=== PATIENT | male | born 1970 | race Caucasian/White ===

== ENCOUNTER 2019-09-13 23:27 | Emergency (ER) | payer BC ==
[2019-09-13] MEDS ORDERED: Clindamycin HCl 150 MG Cap PO ONE (23:53)
--- NOTE | 2019-09-13 23:54 | EDM.PDOC ---
ED HPI GENERAL MEDICAL PROBLEM - General Chief Complaint: Upper Extremity Injury/Pain Stated Complaint: RIGHT KNUCKLE INJURY Time Seen by Provider: 09/13/19 23:33 - History of Present Illness INITIAL COMMENTS - FREE TEXT/NARRATIVE: 49-year-old male presents with right ring finger knuckle injury. The patient was working with a wrench which slipped off of the boat and he knocked his knuckle into another metal truck component. He had some soreness during the day and he is has more redness and swelling tonight. He denies any wrist or arm pain. No fevers chills, nausea vomiting diarrhea. No chills or shortness of breath. No recent chest pain. He is taken no medication for this illness. His pain is mild but he is concerned about injury. - Related Data Allergies Allergy/AdvReac Type Severity Reaction Status Date / Time No Known Allergies Allergy Verified 09/13/19 23:44 Home Meds: Home Meds . [No Known Home Meds] 09/13/19 [History] Clindamycin HCl 450 mg PO Q6HR 10 Days #120 capsule 09/13/19 [Rx] Lactobacillus Rhamnosus GG [Culturelle] 1 cap PO BID 10 Days #20 cap 09/13/19 [ Rx] Past Medical History - Past Health History Medical/Surgical History: Denies Medical/Surgical History Social & Family History - Tobacco Use Smoking Status *Q: Current Every Day Smoker Years of Tobacco use: 25 Packs/Tins Daily: 1 - Recreational Drug Use Recreational Drug Use: No Review of Systems - Review of Systems Review Of Systems: Comprehensive ROS is negative, except as noted in HPI. ED EXAM, GENERAL - Physical Exam Exam: See Below Free Text/Narrative:: General: No acute distress. Comfortable. Extremities: Right hand. There is a 1 cm shallow laceration over the right MCP joint. More proximal there is a 3 cm region of erythema and some warmth on the dorsal hand. There is no pain with flexion or extension of the fingers. There is no swelling of the fingers. There is no pain ranging the wrist in flexion or extension. There is no forearm tenderness to compression. The fourth metacarpal is not tender to palpation nor is the first phalanx. Course - Vital Signs Text/Narrative:: Very shallow less than 1 cm laceration right MCP joint. It is look mildly erythematous I suspect early infection. There is no suggestion of progression of infection up the extensor sheaths. This is localized at this time. I would like not to close this wound. First of all it is very minor and second about like what to drain if and when it gets more infected. We will treat with antibiotic. 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 Accordingly we will do clindamycin first. Patient was told that he is not clearly improved in 12 hours he needs to return immediately to the emergency department. As long as he continues to improve consistently follow-up is not completely necessary although I did encourage him to get a wound check in 2 or 3 days if he has any doubts whatsoever that that this is rapidly improving. Last Recorded V/S: Last Vital Signs Temp 97.0 F 09/13/19 23:41 Pulse 89 09/13/19 23:41 Resp 16 09/13/19 23:41 BP 130/72 09/13/19 23:41 Pulse Ox 99 09/13/19 23:41 Departure - Departure Time of Disposition: 23:50 Disposition: Refer to Observation Condition: Good Clinical Impression: Cellulitis Qualifiers: Site of cellulitis: other site Qualified Code(s): L03.818 - Cellulitis of other sites - Discharge Information Prescriptions: Clindamycin HCl 450 mg PO Q6HR 10 Days #120 capsule Lactobacillus Rhamnosus GG [Culturelle] 1 cap PO BID 10 Days #20 cap Instructions: Cellulitis, Adult Referrals: PCP,Not In Area [Primary Care Provider] - Sepsis Event Note - Evaluation Sepsis Screening Result: No Definite Risk - Focused Exam Vital Signs: Vital Signs Temp Pulse Resp BP Pulse Ox 09/13/19 23:41 97.0 F 89 16 130/72 99 Date Exam was Performed: 09/13/19 Time Exam was Performed: 23:48
== END 2019-09-14 00:06 | disposition other institution (70) ==
LOC: MW.ED 23:27
DX: L03.113 Cellulitis of right upper limb (principal); F17.210 Nicotine dependence, cigarettes, uncomplicated
CPT/HCPCS: 99283; A9270; 99282